=== PATIENT | female | born 1945 | race Caucasian/White ===

== ENCOUNTER 2023-07-21 11:12 | Inpatient (IN) | payer MEDICARE, BC ==
[2023-07-21 11:45] LABS: #Eosinphils 0.2 thou/uL (0.0-0.7); #Monocytes 0.5 thou/uL (0.11-0.59); #Neutrophils 3.8 thou/uL (1.40-6.50); %Basophils 0.7 % (0.0-1.0); %Eosinophils 3.4 % (0.0-10.0); %Lymphocytes 21.9 % (21.0-51.0); %Monocytes 9.2 % (0.0-10.0); %Neutrophils 64.5 % (42.0-75.0); Hematocrit 43.6 % (36.0-47.0); Hemoglobin 14.3 g/dL (12.0-16.0); Mean Corpuscular HGB CONC 32.8 g/dL (32.0-36.0); Mean Corpuscular Hemoglobin 30.8 pg (27.0-31.0); Mean Platelet Volume 9.9 fL (7.4-10.4); Platelet Count 175 10x3/uL (130-400); RBC Distribution Width 12.9 % (11.5-14.5); Red Blood Cell (RBC) Count 4.64 mill/uL (4.20-5.40); White Blood Cell (WBC) Count 5.9 10x3/uL (4.8-10.8)
[2023-07-21 12:12] LABS: ALT (SGPT) 9 U/L (8-55); AST (SGOT) 15 U/L (5-34); Albumin 3.9 g/dL (3.4-4.8); Alkaline Phosphatase 74 U/L (40-110); Anion Gap 15 mmol/L (10-20); BUN (Urea Nitrogen) 11 mg/dL (9.8-20.1); Bilirubin, Total 1.4 mg/dL (0.2-1.2); Calc. Creatinine Clearance 0 mL/min (70-130); Calcium 9.9 mg/dL (7.8-10.44); Carbon Dioxide 24 mmol/L (23-31); Chloride 104 mmol/L (98-107); Estimated GFR 74; Globulin 3.5 g/dL (2.4-3.5); Glucose 132 mg/dL (83-110); Potassium 4.5 mmol/L (3.5-5.1); Protein, Total 7.4 g/dL (5.8-8.1); Sodium 138 mmol/L (136-145)
[2023-07-21 12:14] LABS: Troponin I Less than 0.010 ng/mL (< 0.028)
[2023-07-21] MEDS ORDERED: Morphine 4 MG/ML VIAL ONE (14:27)
[2023-07-21] MEDS ORDERED: Acetaminophen 325 MG TAB ONE (14:28)
[2023-07-21] MEDS ORDERED: dilTIAZem 125 MG/25 ML SDV ONE (15:34)
[2023-07-21] MEDS ORDERED: Dextrose 5% in Water 1,000 ML IV PRN (15:46)
[2023-07-21] MEDS ORDERED: Acetaminophen 325 MG TAB PO PRN (15:46)
[2023-07-21] MEDS ORDERED: Glucagon 1 MG/ML KIT IM PRN (15:46)
[2023-07-21] MEDS ORDERED: Nitroglycerin 0.4 MG TAB (25 Tab Bottle) SL PRN (15:46)
[2023-07-21] MEDS ORDERED: HumaLOG 300 UNITS/3 ML VIAL SC PRN ×2 (15:46)
[2023-07-21] MEDS ORDERED: Dextrose 50% Abboject 50 ML SYRINGE SLOW IVP PRN (15:46)
[2023-07-21] MEDS ORDERED: dilTIAZem 125 MG in Sodium Chloride 0.9% 100 ML IVPB SCH ×2 (15:46→18:00)
[2023-07-21] MEDS: Potassium Chloride 20 MEQ TAB PO SCH (16:26)
[2023-07-21 18:12] VITALS: BMI 34.9
[2023-07-21 19:40] LABS: Bacteria/HPF None Seen HPF (None Seen); Bilirubin Negative (Negative); Blood, Urine Negative (Negative); Clarity Clear (Clear); Glucose, Urine (Dipstick) Normal (Negative); Ketone, Urine Negative (Negative); Leukocyte Negative Leu/uL (Negative); Nitrite Negative (Negative); Protein, Urine (Dipstick) Negative (Neg-Trace); RBC/HPF 0-3 HPF (0-3); Specific Gravity, Urine 1.009 (1.002-1.036); Squamous Epithelial None Seen HPF (0-3); Urobilinogen Normal mg/dL (Less than 2); WBC/HPF 0-3 HPF (0-3); pH, Urine 6.5 (5.0-9.0)
[2023-07-21] MEDS: Apixaban 5 MG TAB PO SCH (20:18)
[2023-07-21] MEDS: Gabapentin 100 MG CAP PO SCH (20:18)
[2023-07-21] MEDS: Rosuvastatin 20 MG TAB PO SCH (20:18)
[2023-07-22] MEDS: Levothyroxine Sodium 88 MCG TAB PO SCH (05:34)
[2023-07-22 05:50] LABS: #Eosinphils 0.2 thou/uL (0.0-0.7); #Monocytes 0.8 thou/uL (0.11-0.59); #Neutrophils 6.2 thou/uL (1.40-6.50); %Basophils 0.5 % (0.0-1.0); %Eosinophils 2.6 % (0.0-10.0); %Monocytes 9.4 % (0.0-10.0); %Neutrophils 74.4 % (42.0-75.0); Hematocrit 40.9 % (36.0-47.0); Hemoglobin 13.4 g/dL (12.0-16.0); Mean Corpuscular HGB CONC 32.8 g/dL (32.0-36.0); Mean Corpuscular Volume 94.7 fl (78.0-98.0); Mean Platelet Volume 9.8 fL (7.4-10.4); Platelet Count 177 10x3/uL (130-400); RBC Distribution Width 12.8 % (11.5-14.5); Red Blood Cell (RBC) Count 4.32 mill/uL (4.20-5.40); White Blood Cell (WBC) Count 8.4 10x3/uL (4.8-10.8)
[2023-07-22 06:10] LABS: Anion Gap 12 mmol/L (10-20); BUN (Urea Nitrogen) 13 mg/dL (9.8-20.1); Calc. Creatinine Clearance 75 mL/min (70-130); Calcium 9.2 mg/dL (7.8-10.44); Carbon Dioxide 23 mmol/L (23-31); Chloride 105 mmol/L (98-107); Cholesterol 152 mg/dl (< 200 Desired); Estimated GFR 70; Glucose 159 mg/dL (83-110); HDL Cholesterol 50 mg/dL (>60 Neg Risk); LDL Cholesterol, Calculated 85 mg/dL; Potassium 4.5 mmol/L (3.5-5.1); Sodium 135 mmol/L (136-145); Triglycerides 86 mg/dL (Less than 150)
[2023-07-22] MEDS: Furosemide 40 MG TAB PO SCH (08:27)
[2023-07-22] MEDS: Apixaban 5 MG TAB PO SCH ×2 (08:27→19:54)
[2023-07-22] MEDS: Potassium Chloride 20 MEQ TAB PO SCH ×2 (08:28→17:31)
[2023-07-22] MEDS: Sertraline 100 MG TAB PO SCH (08:28)
[2023-07-22] MEDS ORDERED: Clopidogrel Bisulfate 75 MG TAB PO SCH (09:00)
[2023-07-22] MEDS ORDERED: Metoprolol Tartrate 25 MG TAB PO SCH (11:15)
[2023-07-22] MEDS: Rosuvastatin 20 MG TAB PO SCH (19:54)
[2023-07-22] MEDS: Metoprolol Tartrate 25 MG TAB PO SCH (19:54)
[2023-07-22] MEDS: Gabapentin 100 MG CAP PO SCH (19:54)
[2023-07-22] MEDS: Amiodarone 200 MG TAB PO SCH (19:54)
[2023-07-23 05:18] LABS: #Basophils 0.1 thou/uL (0.0-0.2); #Eosinphils 0.5 thou/uL (0.0-0.7); #Monocytes 0.5 thou/uL (0.11-0.59); #Neutrophils 2.8 thou/uL (1.40-6.50); %Eosinophils 8.9 % (0.0-10.0); %Lymphocytes 24.3 % (21.0-51.0); %Monocytes 9.7 % (0.0-10.0); %Neutrophils 55.5 % (42.0-75.0); Hematocrit 41.4 % (36.0-47.0); Hemoglobin 13.5 g/dL (12.0-16.0); Mean Corpuscular HGB CONC 32.6 g/dL (32.0-36.0); Mean Corpuscular Hemoglobin 30.8 pg (27.0-31.0); Mean Corpuscular Volume 94.3 fl (78.0-98.0); Mean Platelet Volume 9.7 fL (7.4-10.4); Platelet Count 160 10x3/uL (130-400); RBC Distribution Width 12.8 % (11.5-14.5); Red Blood Cell (RBC) Count 4.39 mill/uL (4.20-5.40)
[2023-07-23] MEDS: Metoprolol Tartrate 25 MG TAB PO SCH ×2 (05:43→19:58)
[2023-07-23] MEDS: Levothyroxine Sodium 88 MCG TAB PO SCH (05:43)
[2023-07-23 05:47] LABS: Anion Gap 11 mmol/L (10-20); BUN (Urea Nitrogen) 15 mg/dL (9.8-20.1); Calc. Creatinine Clearance 77 mL/min (70-130); Calcium 9.4 mg/dL (7.8-10.44); Carbon Dioxide 24 mmol/L (23-31); Chloride 105 mmol/L (98-107); Estimated GFR 72; Glucose 129 mg/dL (83-110); Potassium 4.1 mmol/L (3.5-5.1); Sodium 136 mmol/L (136-145)
[2023-07-23] MEDS: Furosemide 40 MG TAB PO SCH (08:48)
[2023-07-23] MEDS: Potassium Chloride 20 MEQ TAB PO SCH ×2 (08:49→18:34)
[2023-07-23] MEDS: Sertraline 100 MG TAB PO SCH (08:49)
[2023-07-23] MEDS: Amiodarone 200 MG TAB PO SCH ×2 (08:49→19:58)
[2023-07-23] MEDS: Apixaban 5 MG TAB PO SCH (08:49)
[2023-07-23] MEDS: cefTRIAXone\\ROCEPHIN 1 GM in Sodium Chloride 0.9% 100 ML IVPB SCH (15:04)
[2023-07-23 15:56] LABS: Bacteria/HPF None Seen HPF (None Seen); Bilirubin Negative (Negative); Blood, Urine Negative (Negative); Clarity Clear (Clear); Glucose, Urine (Dipstick) Normal (Negative); Ketone, Urine Negative (Negative); Leukocyte Negative Leu/uL (Negative); Nitrite Negative (Negative); Protein, Urine (Dipstick) Negative (Neg-Trace); RBC/HPF 0-3 HPF (0-3); Specific Gravity, Urine 1.006 (1.002-1.036); Squamous Epithelial 0-3 HPF (0-3); Urobilinogen Normal mg/dL (Less than 2); WBC/HPF 0-3 HPF (0-3); pH, Urine 6.5 (5.0-9.0)
[2023-07-23] MEDS: Gabapentin 100 MG CAP PO SCH (19:58)
[2023-07-23] MEDS: Rosuvastatin 20 MG TAB PO SCH (19:59)
[2023-07-24 05:02] LABS: #Basophils 0.1 thou/uL (0.0-0.2); #Eosinphils 0.5 thou/uL (0.0-0.7); #Monocytes 0.8 thou/uL (0.11-0.59); #Neutrophils 4.2 thou/uL (1.40-6.50); %Basophils 0.8 % (0.0-1.0); %Eosinophils 6.6 % (0.0-10.0); %Lymphocytes 22.2 % (21.0-51.0); %Monocytes 10.9 % (0.0-10.0); %Neutrophils 59.1 % (42.0-75.0); Hematocrit 42.5 % (36.0-47.0); Hemoglobin 14.2 g/dL (12.0-16.0); Mean Corpuscular HGB CONC 33.4 g/dL (32.0-36.0); Mean Corpuscular Hemoglobin 31.1 pg (27.0-31.0); Platelet Count 196 10x3/uL (130-400); RBC Distribution Width 12.7 % (11.5-14.5); Red Blood Cell (RBC) Count 4.57 mill/uL (4.20-5.40); White Blood Cell (WBC) Count 7.1 10x3/uL (4.8-10.8)
[2023-07-24 05:30] LABS: Anion Gap 10 mmol/L (10-20); BUN (Urea Nitrogen) 16 mg/dL (9.8-20.1); Calc. Creatinine Clearance 64 mL/min (70-130); Calcium 9.5 mg/dL (7.8-10.44); Carbon Dioxide 28 mmol/L (23-31); Chloride 102 mmol/L (98-107); Estimated GFR 58; Glucose 124 mg/dL (83-110); Sodium 136 mmol/L (136-145)
[2023-07-24] MEDS: Levothyroxine Sodium 88 MCG TAB PO SCH (06:17)
[2023-07-24] MEDS ORDERED: Protamine Sulfate 50 MG/5 ML VIAL ONE (07:26)
[2023-07-24] MEDS ORDERED: Heparin 10,000 UNITS/ 10 ML VIAL ONE (07:26)
[2023-07-24] MEDS ORDERED: Heparin 25,000 units/D5W 0 ML ONE (07:26)
[2023-07-24] MEDS ORDERED: DOPamine 400 MG/D5W 250 ML 0 ML ONE (07:27)
[2023-07-24] MEDS ORDERED: Lidocaine 1% (PF) 30 ML VIAL ONE (07:27)
[2023-07-24] MEDS: Sertraline 100 MG TAB PO SCH (07:41)
[2023-07-24] MEDS: Metoprolol Tartrate 25 MG TAB PO SCH ×2 (07:42→20:12)
[2023-07-24] MEDS: Potassium Chloride 20 MEQ TAB PO SCH ×2 (07:42→17:47)
[2023-07-24] MEDS: Amiodarone 200 MG TAB PO SCH ×2 (07:42→20:11)
[2023-07-24] MEDS ORDERED: fentaNYL 50 mcg/mL 1 mL Vial ONE (10:29)
[2023-07-24] MEDS ORDERED: Propofol 500 MG/50 ML VIAL ONE (10:29)
[2023-07-24] MEDS ORDERED: Ondansetron PF 4 MG/2 ML Vial ONE ×2 (10:30→10:46)
[2023-07-24] MEDS ORDERED: PHENYLEPHRINE-NS 100 MCG/ML 10 ML SYRINGE ONE (10:46)
[2023-07-24] MEDS ORDERED: Lidocaine 1% PF 5 ML VIAL ONE (10:46)
[2023-07-24] MEDS ORDERED: PROPOFOL 200 MG/20 ML VIAL ONE (10:46)
[2023-07-24] MEDS ORDERED: Ondansetron HCl/PF 4 MG/2 ML Vial IVP PRN (12:48)
[2023-07-24] MEDS ORDERED: Promethazine HCl 25 MG/ML VIAL IM PRN (12:48)
[2023-07-24] MEDS: Furosemide 40 MG TAB PO SCH (15:21)
[2023-07-24] MEDS: cefTRIAXone\\ROCEPHIN 1 GM in Sodium Chloride 0.9% 100 ML IVPB SCH (15:21)
[2023-07-24] MEDS: Gabapentin 100 MG CAP PO SCH (20:11)
[2023-07-24] MEDS: Rosuvastatin 20 MG TAB PO SCH (20:12)
[2023-07-24] MEDS: Apixaban 5 MG TAB PO SCH (20:12)
[2023-07-25 05:23] LABS: #Basophils 0.1 thou/uL (0.0-0.2); #Eosinphils 0.4 thou/uL (0.0-0.7); #Monocytes 0.6 thou/uL (0.11-0.59); #Neutrophils 3.3 thou/uL (1.40-6.50); %Basophils 0.9 % (0.0-1.0); %Eosinophils 6.9 % (0.0-10.0); %Lymphocytes 23.2 % (21.0-51.0); %Monocytes 10.2 % (0.0-10.0); %Neutrophils 58.6 % (42.0-75.0); Hematocrit 38.7 % (36.0-47.0); Hemoglobin 12.5 g/dL (12.0-16.0); Mean Corpuscular HGB CONC 32.3 g/dL (32.0-36.0); Mean Corpuscular Hemoglobin 30.8 pg (27.0-31.0); Mean Corpuscular Volume 95.3 fl (78.0-98.0); Platelet Count 175 10x3/uL (130-400); Red Blood Cell (RBC) Count 4.06 mill/uL (4.20-5.40); White Blood Cell (WBC) Count 5.7 10x3/uL (4.8-10.8)
[2023-07-25 05:51] LABS: Anion Gap 10 mmol/L (10-20); BUN (Urea Nitrogen) 19 mg/dL (9.8-20.1); Calc. Creatinine Clearance 65 mL/min (70-130); Calcium 9.4 mg/dL (7.8-10.44); Carbon Dioxide 25 mmol/L (23-31); Chloride 104 mmol/L (98-107); Estimated GFR 58; Glucose 115 mg/dL (83-110); Potassium 4.9 mmol/L (3.5-5.1); Sodium 134 mmol/L (136-145)
[2023-07-25] MEDS: Levothyroxine Sodium 88 MCG TAB PO SCH (05:57)
[2023-07-25 08:33] VITALS: BP 128/63; TEMP 97.6
[2023-07-25] MEDS: Sertraline 100 MG TAB PO SCH (09:29)
[2023-07-25] MEDS: Furosemide 40 MG TAB PO SCH (09:31)
[2023-07-25] MEDS: Metoprolol Tartrate 25 MG TAB PO SCH (09:31)
[2023-07-25] MEDS: Potassium Chloride 20 MEQ TAB PO SCH (09:31)
[2023-07-25] MEDS: Apixaban 5 MG TAB PO SCH (09:32)
[2023-07-25] MEDS: Amiodarone 200 MG TAB PO SCH (09:32)
== END 2023-07-25 13:12 | disposition home or self-care (01) | DRG 274 ==
LOC: ERS 11:12 → 2SW 15:00 → OBSVTOIN 07-22 15:34
PROVIDERS: ADMIT Family Medicine; ATTEND Family Medicine
PROC: 02583ZZ Destruction of Conduction Mechanism, Percutaneous Approach (ICD-10-PCS; principal; 2023-07-24)
PROC: 02K83ZZ Map Conduction Mechanism, Percutaneous Approach (ICD-10-PCS; 2023-07-24)
PROC: B24BZZ4 Ultrasonography of Heart with Aorta, Transesophageal (ICD-10-PCS; 2023-07-24)
PROC: 4A023FZ Measurement of Cardiac Rhythm, Percutaneous Approach (ICD-10-PCS; 2023-07-24)
PROC: 4A0234Z Measurement of Cardiac Electrical Activity, Percutaneous Approach (ICD-10-PCS; 2023-07-24)
DX: I48.0 Paroxysmal atrial fibrillation (principal); N39.0 Urinary tract infection, site not specified; R07.89 Other chest pain; I25.10 Atherosclerotic heart disease of native coronary artery without angina pectoris; Z60.2 Problems related to living alone; E78.00 Pure hypercholesterolemia, unspecified; F41.9 Anxiety disorder, unspecified; I48.92 Unspecified atrial flutter; I49.5 Sick sinus syndrome; E03.9 Hypothyroidism, unspecified; E11.42 Type 2 diabetes mellitus with diabetic polyneuropathy; Z79.01 Long term (current) use of anticoagulants; Z79.02 Long term (current) use of antithrombotics/antiplatelets; Z79.899 Other long term (current) drug therapy; Z95.5 Presence of coronary angioplasty implant and graft; Z95.0 Presence of cardiac pacemaker; Z79.890 Hormone replacement therapy; Z90.49 Acquired absence of other specified parts of digestive tract; Z82.49 Family history of ischemic heart disease and other diseases of the circulatory system; I25.2 Old myocardial infarction; Z98.41 Cataract extraction status, right eye; Z98.42 Cataract extraction status, left eye; Z90.710 Acquired absence of both cervix and uterus; Z90.89 Acquired absence of other organs
CPT/HCPCS: 36415; 36416; 71045; 80048; 80053; 80061; 81001; 83880; 84443; 84484; 85025; 87040; 87086; 93005; 93010; 93306; 93312; 93613; 93621; 93653; 94760; 96374; 96375; C1731; C1732; C1760; C1894; J0696; J1265; J1644; J1650; J1815; J2001; J2270; J2405; J2704; J2720; J3010; J3490

== ENCOUNTER 2024-05-25 12:00 | Inpatient (IN) | payer MEDICARE ==
[2024-05-25 12:15] VITALS: BMI 32.9
[2024-05-25 13:13] LABS: Hematocrit 43.6 % (34.9-44.5); Hemoglobin 14.4 g/dL (12.0-15.5); Mean Corpuscular Hemoglobin 31.4 pg (27.0-33.0); Mean Corpuscular Volume 95.2 fL (81.6-98.3); Mean Platelet Volume 9.9 fL (7.4-10.4); Platelet Count 184 10x3/uL (150-450); Red Blood Cell (RBC) Count 4.58 10x6/uL (3.90-5.03); White Blood Cell (WBC) Count 4.5 10x3/uL (3.5-10.5)
[2024-05-25 13:24] LABS: INR-International Normal Ratio 1.1; Prothrombin Time 11.8 sec (9.5-12.1)
[2024-05-25 13:47] LABS: ALT (SGPT) 7 U/L (8-55); AST (SGOT) 15 U/L (5-34); Albumin 3.5 g/dL (3.4-4.8); Alkaline Phosphatase 69 U/L (40-110); Anion Gap 11 mmol/L (10-20); BUN (Urea Nitrogen) 16 mg/dL (9.8-20.1); Bilirubin, Total 0.8 mg/dL (0.2-1.2); Calc. Creatinine Clearance 76 mL/min (70-130); Calcium 9.6 mg/dL (7.8-10.44); Carbon Dioxide 28 mmol/L (23-31); Chloride 107 mmol/L (98-107); Estimated GFR 77; Globulin 2.7 g/dL (2.4-3.5); Glucose 111 mg/dL (83-110); Potassium 4.6 mmol/L (3.5-5.1); Protein, Total 6.2 g/dL (5.8-8.1); Sodium 141 mmol/L (136-145)
[2024-06-01] MEDS ORDERED: Heparin 10,000 UNITS/ 10 ML VIAL ONE (06:43)
[2024-06-01] MEDS ORDERED: Protamine Sulfate 50 MG/5 ML VIAL ONE (06:43)
[2024-06-01] MEDS ORDERED: Dexamethasone 4 mg/ml Vial ONE (06:46)
[2024-06-01] MEDS ORDERED: SUGAMMADEX SODIUM 200 MG/2 ML VIAL ONE (06:46)
[2024-06-01] MEDS ORDERED: fentaNYL 50 mcg/mL 1 mL Vial ONE (06:47)
[2024-06-01] MEDS ORDERED: PROPOFOL 20 ML ONE (06:47)
[2024-06-01] MEDS ORDERED: Ondansetron PF 4 MG/2 ML Vial ONE (06:47)
[2024-06-01] MEDS ORDERED: Phenylephrine 10 MG/ML VIAL ONE (06:47)
[2024-06-01] MEDS ORDERED: Lidocaine 1% PF 5 ML VIAL ONE (06:47)
[2024-06-01] MEDS ORDERED: Rocuronium Bromide 10 MG/ML (10ML VIAL) ONE (06:53)
[2024-06-01] MEDS ORDERED: CEFAZOLIN 2 GM VIAL ONE (06:54)
== END 2024-06-01 12:00 | disposition home or self-care (01) | DRG 274 ==
LOC: SURG A 06-01 06:12 → EDSTATUS 06-01 12:00
PROVIDERS: ADMIT Internal Medicine Cardiovascular Disease; ATTEND Internal Medicine Cardiovascular Disease
PROC: 02L73DK Occlusion of Left Atrial Appendage with Intraluminal Device, Percutaneous Approach (ICD-10-PCS; principal; 2024-06-01)
PROC: B24BZZ4 Ultrasonography of Heart with Aorta, Transesophageal (ICD-10-PCS; 2024-06-01)
DX: I48.0 Paroxysmal atrial fibrillation (principal); I10 Essential (primary) hypertension; I49.5 Sick sinus syndrome; I25.10 Atherosclerotic heart disease of native coronary artery without angina pectoris; E78.5 Hyperlipidemia, unspecified; E11.9 Type 2 diabetes mellitus without complications; F41.9 Anxiety disorder, unspecified; E03.9 Hypothyroidism, unspecified; Z90.49 Acquired absence of other specified parts of digestive tract; Z90.710 Acquired absence of both cervix and uterus; Z79.01 Long term (current) use of anticoagulants; Z95.0 Presence of cardiac pacemaker; Z79.890 Hormone replacement therapy; Z79.02 Long term (current) use of antithrombotics/antiplatelets; Z79.899 Other long term (current) drug therapy; Z95.5 Presence of coronary angioplasty implant and graft
CPT/HCPCS: 33340; 80053; 85027; 85347; 85610; 86850; 86900; 86901; 93306; 93312; C1753; C1760; C1889; C1893; C1894; J1100; J1644; J2371; J2405; J2704; J2720; J3010

== ENCOUNTER 2024-07-15 06:22 | Day surgery (SDC) | payer MEDICARE ==
[2024-07-13 11:51] VITALS: BMI 33.6
[2024-07-15] MEDS ORDERED: Lidocaine 1% MPF 2 ML VIAL ONE (06:51)
[2024-07-15] MEDS ORDERED: PROPOFOL 200 MG/20 ML VIAL ONE (08:52)
== END 2024-07-15 09:43 | disposition home or self-care (01) ==
LOC: SDC 06:22
PROVIDERS: ATTEND Internal Medicine Cardiovascular Disease
PROC: B246ZZ4 Ultrasonography of Right and Left Heart, Transesophageal (ICD-10-PCS; principal; 2024-07-15)
DX: I48.0 Paroxysmal atrial fibrillation (principal)
CPT/HCPCS: 93312; J2704